=== PATIENT | female | born 1950 | race Caucasian/White ===

== ENCOUNTER → 2016-08-14 | Outpatient (CLI) | payer OTHER | LOC: RT 12:27 | DX: I10 Essential (primary) hypertension (principal) | CPT/HCPCS: 93005 ==

== ENCOUNTER → 2020-04-30 | Outpatient (CLI) | payer OTHER ==
[2020-05-04 11:14] LABS: CHOLESTEROL, TOTAL 157 mg/dL (100-199); HDL SIZE 8.8 nm (>=9.2); HDL-C 36 mg/dL (>39); HDL-P (TOTAL) 27.7 umol/L (>=30.5); LARGE HDL-P 2.1 umol/L (>=4.8); LARGE VLDL-P 2.5 nmol/L (<=2.7); LDL SIZE 21.9 nm (>20.5); LDL SIZE 21.9 nm (>=20.8); LDL-C 105 mg/dL (0-99); LDL-P 1075 nmol/L (<1000); LP-IR SCORE 42 (<=45); SMALL LDL-P 221 nmol/L (<=527); TRIGLYCERIDES 86 mg/dL (0-149); VLDL SIZE 42.7 nm (<=46.6)
== END ==
LOC: LAB 11:39
PROVIDERS: Emergency Medicine
DX: I12.9 Hypertensive chronic kidney disease with stage 1 through stage 4 chronic kidney disease, or unspecified chronic kidney disease (principal); N18.30 Chronic kidney disease, stage 3 unspecified; E78.2 Mixed hyperlipidemia
CPT/HCPCS: 36415; 80053

== ENCOUNTER → 2020-05-14 | Outpatient (CLI) | payer OTHER ==
[2020-05-14 12:16] LABS: HEMOGLOBIN 14.1 gm/dl (12.3-15.3); RED BLOOD COUNT 4.45 M/UL (4.00-5.10); WHITE BLOOD COUNT 5.7 K/UL (4.5-11.0)
== END ==
LOC: LAB 11:38
PROVIDERS: Nurse Practitioner
DX: R22.41 Localized swelling, mass and lump, right lower limb (principal); M79.661 Pain in right lower leg; M25.561 Pain in right knee
CPT/HCPCS: 36415; 80053; 82550; 84550; 85025; 85379; 85652; 93971

== ENCOUNTER → 2020-05-21 | Outpatient (CLI) | payer OTHER | LOC: KOH-I 10:57 | DX: J32.9 Chronic sinusitis, unspecified (principal); J34.2 Deviated nasal septum; J34.89 Other specified disorders of nose and nasal sinuses | CPT/HCPCS: 70486 ==

== ENCOUNTER → 2020-08-26 | Outpatient (CLI) | payer OTHER ==
[2020-08-26 10:49] LABS: HEMOGLOBIN 14.4 gm/dl (12.3-15.3); RED BLOOD COUNT 4.48 M/UL (4.00-5.10); WHITE BLOOD COUNT 5.6 K/UL (4.5-11.0)
[2020-08-28 14:13] LABS: CHOLESTEROL, TOTAL 150 mg/dL (100-199); HDL SIZE 8.9 nm (>=9.2); HDL-C 42 mg/dL (>39); HDL-P (TOTAL) 32.1 umol/L (>=30.5); LARGE HDL-P 2.9 umol/L (>=4.8); LARGE VLDL-P 1.6 nmol/L (<=2.7); LDL SIZE 21.5 nm (>20.5); LDL SIZE 21.5 nm (>=20.8); LDL-C 97 mg/dL (0-99); LDL-P 1183 nmol/L (<1000); LP-IR SCORE 41 (<=45); SMALL LDL-P 499 nmol/L (<=527); TRIGLYCERIDES 55 mg/dL (0-149); VLDL SIZE 43.1 nm (<=46.6)
[2020-08-31 17:13] LABS: 25-HYDROXY, VITAMIN D-2 9.8 ng/mL (.)
== END ==
LOC: LAB 10:18
PROVIDERS: Emergency Medicine
DX: I12.9 Hypertensive chronic kidney disease with stage 1 through stage 4 chronic kidney disease, or unspecified chronic kidney disease (principal); N18.30 Chronic kidney disease, stage 3 unspecified; E78.2 Mixed hyperlipidemia; R53.83 Other fatigue; E55.9 Vitamin D deficiency, unspecified; D51.8 Other vitamin B12 deficiency anemias; E03.8 Other specified hypothyroidism; Z88.2 Allergy status to sulfonamides
CPT/HCPCS: 36415; 80053; 80061; 82306; 82607; 83704; 84443; 85025

== ENCOUNTER → 2020-11-25 | Outpatient (CLI) | payer OTHER | LOC: KOH-I 10:35 | DX: R13.10 Dysphagia, unspecified (principal); Z88.2 Allergy status to sulfonamides | CPT/HCPCS: 76536 ==

== ENCOUNTER → 2021-01-25 | Outpatient (CLI) | payer OTHER ==
[2021-01-25 11:02] LABS: RED BLOOD COUNT 4.32 M/UL (4.00-5.10)
== END ==
LOC: LAB 10:08 → KOH-I 10:08
PROVIDERS: Emergency Medicine
DX: I10 Essential (primary) hypertension (principal); E78.2 Mixed hyperlipidemia; M13.871 Other specified arthritis, right ankle and foot; R60.0 Localized edema; M79.661 Pain in right lower leg; M71.21 Synovial cyst of popliteal space [Baker], right knee
CPT/HCPCS: 36415; 80048; 84550; 85025; 85379; 86140; 93971

== ENCOUNTER 2021-04-12 23:49 | Observation (INO) | payer OTHER ==
[~2021-04-12] VITALS: Ht 162.6 cm; Wt 73.5 kg
[2021-04-13 00:21] LABS: HEMOGLOBIN 13.3 gm/dl (12.3-15.3); RED BLOOD COUNT 4.14 M/UL (4.00-5.10); WHITE BLOOD COUNT 8.2 K/UL (4.5-11.0)
[2021-04-13 01:24] LABS: BUN/CREATININE RATIO 24 (0-10)
[2021-04-13] MEDS ORDERED: ASPIRIN EC81 MG PO (13:14)
[2021-04-13] MEDS ORDERED: PROTONIX 40 MG40 M1 PO (13:14)
[2021-04-13] MEDS ORDERED: HYDROCHLOROTH12.5 MG PO (13:15)
[2021-04-13] MEDS ORDERED: LIQUID B121000 MCG/1 PO (13:15)
[2021-04-13] MEDS ORDERED: ONDANSETRON HCL4 MG PO (13:16)
[2021-04-13] MEDS ORDERED: NITROGLYCERIN0.4 MG SL (13:16)
[2021-04-13] MEDS ORDERED: CRESTOR20 MG PO (13:16)
[2021-04-13] MEDS ORDERED: ZYRTEC10 MG PO (13:17)
[2021-04-14 06:36] LABS: HEMOGLOBIN 12.5 gm/dl (12.3-15.3); RED BLOOD COUNT 3.91 M/UL (4.00-5.10); WHITE BLOOD COUNT 6.9 K/UL (4.5-11.0)
[2021-04-14] MEDS ORDERED: ISOSORBIDE MONO30 MG PO (10:50)
--- NOTE | 2021-04-14 12:39 | NUR ---
WHEN PT BACK FROM [facility], RADIAL AND GROIN ACCESS SITES ASSESSED. RADIAL HAD TR BAND IN TACT. CDI. RIGHT GROIN SOFT, CLEAN, WNL. WCTM.
--- NOTE | 2021-04-14 13:04 | NUR ---
WENT TO RELEASE 5 MORE ML OF AIR FROM TR BAND. SCANT AMOUNT OF BLOOD WAS NOTED AT SITE. REINFLATED BY 5 ML PER STANDARD WCTM.
--- NOTE | 2021-04-14 15:34 | NUR ---
CALLED DR MELENDREZ TO GIVE U/S RESULTS. NO PVD NOTED IN IMPRESSION. ALSO DISCUSSED PT CONCERN FOR "LOWER THAN NORMAL BP". SBP IS IN THE 90'S, PT ASYMPTOMATIC, NO ISSUES. DR MELENDREZ STATED THIS IS OK JUST ENCOURAGE PT TO STAY HYDRATED. RADIAL SITE DISCUSSED WITH HIM WELL. BRUISING IS OK THERE IS NO HEMATOMA PRESENT AND THE BRUISING HAS CEASED. SITE COVERED WITH 2X2 AND LARGE BANDAID. GROIN SITE CDI.
== END 2021-04-14 16:00 | disposition home or self-care (01) ==
LOC: ER1 23:49 → CDU 04-13 02:35 → MED SURG 4 04-13 17:35
PROVIDERS: Internal Medicine; Physician Assistant; ADMIT Internal Medicine
DX: I25.119 Atherosclerotic heart disease of native coronary artery with unspecified angina pectoris (principal); I77.89 Other specified disorders of arteries and arterioles; I10 Essential (primary) hypertension; E78.5 Hyperlipidemia, unspecified; K21.9 Gastro-esophageal reflux disease without esophagitis; Z82.49 Family history of ischemic heart disease and other diseases of the circulatory system; Z88.5 Allergy status to narcotic agent; Z88.2 Allergy status to sulfonamides; Z79.899 Other long term (current) drug therapy; Z20.822 Contact with and (suspected) exposure to COVID-19
CPT/HCPCS: ECHO; 0240U; 71045; 78452; 80048; 80053; 82550; 82553; 83735; 83874; 83880; 84484; 85025; 85027; 85610; 85730; 93005; 93017; 93306; 93931; 96372; 96374; 99152; 99153; 99285; A9502; C1760; C1769; C1894; G0378; J1644; J1650; J2250; J2405; J2785; Q9965

== ENCOUNTER → 2021-05-05 | Outpatient (CLI) | payer OTHER ==
[~2021-05-05] MED LIST: ASPIRIN EC81 MG PO; CRESTOR20 MG PO; HYDROCHLOROTH12.5 MG PO; ISOSORBIDE MONO30 MG PO; LIQUID B121000 MCG/1 PO; NITROGLYCERIN0.4 MG SL; ONDANSETRON HCL4 MG PO; PROTONIX 40 MG40 M1 PO; ZYRTEC10 MG PO
== END ==
LOC: KOH-I 10:30
DX: S06.0X0A Concussion without loss of consciousness, initial encounter (principal); S02.2XXA Fracture of nasal bones, initial encounter for closed fracture; W01.198A Fall on same level from slipping, tripping and stumbling with subsequent striking against other object, initial encounter
CPT/HCPCS: 70450; 70486

== ENCOUNTER → 2021-05-05 | Outpatient (CLI) | payer OTHER | LOC: LAB 10:05 | PROVIDERS: Emergency Medicine | DX: I12.9 Hypertensive chronic kidney disease with stage 1 through stage 4 chronic kidney disease, or unspecified chronic kidney disease (principal); N18.30 Chronic kidney disease, stage 3 unspecified; E78.5 Hyperlipidemia, unspecified; I25.10 Atherosclerotic heart disease of native coronary artery without angina pectoris | CPT/HCPCS: 36415; 80053 ==

== ENCOUNTER → 2021-05-12 | Outpatient (CLI) | payer OTHER | LOC: CT 09:47 | DX: I77.1 Stricture of artery (principal) | CPT/HCPCS: 71275; Q9967 ==

== ENCOUNTER → 2021-08-11 | Outpatient (CLI) | payer OTHER | LOC: KOH-I 08-05 08:30 | DX: R10.9 Unspecified abdominal pain (principal); K59.00 Constipation, unspecified | CPT/HCPCS: 74176 ==

== ENCOUNTER → 2021-10-10 | Outpatient (CLI) | payer OTHER | LOC: KOH-I 12:17 | DX: N20.0 Calculus of kidney (principal) | CPT/HCPCS: 74018 ==